=== PATIENT | female | born 2005 | race Caucasian/White ===

== ENCOUNTER 2023-09-15 18:04 | Emergency (ER) | payer OTHER ==
[~2023-09-15] VITALS: Ht 147.3 cm; Wt 94.0 kg
[2023-09-15] MEDS ORDERED: METF500T13 PO (18:12)
[2023-09-15] MEDS: ACETAMINOPHEN 500 MG TAB PO ONE (18:28)
[2023-09-15] MEDS: NS 1,000 ML IV ONE (23:33)
[2023-09-15] MEDS ORDERED: ISOVUE-370 76% 100ML VIAL As Ordered ONE (23:34)
[2023-09-16 00:21] LABS: BASO # 0.1 10^3/uL (0.0-0.2); BASO % 0.3 % (0.0-1.0); EOS # 0.1 10^3/uL (0.0-0.5); EOS % 0.4 % (0.0-3.0); HEMATOCRIT 41.8 % (36.0-47.0); HEMOGLOBIN 13.7 g/dl (12.0-15.5); LYMPH # 4.7 10^3/uL (1.5-5.0); LYMPH % 20.7 % (24.0-44.0); MEAN CORPUSCULAR HEMOGLOBIN 27.5 pg (27.0-33.0); MEAN CORPUSCULAR HGB CONC 32.8 g/dl (32.0-36.5); MEAN CORPUSCULAR VOLUME 83.9 fl (80.0-96.0); MONO # 2.1 10^3/uL (0.0-0.8); MONO % 9.2 % (2.0-8.0); NEUTROPHILS # 15.7 10^3/uL (1.5-8.5); PLATELET COUNT, AUTOMATED 309 10^3/uL (150-450); RED BLOOD COUNT 4.98 10^6/uL (4.00-5.40); WHITE BLOOD COUNT 22.7 10^3/uL (4.0-10.0)
[2023-09-16] MEDS ORDERED: VENTAER INH (00:57)
[2023-09-16 03:10] VITALS: BP 121/69; TEMP 98.3; O2SAT 100
== END 2023-09-16 03:46 | disposition home or self-care (01) ==
LOC: M ED 18:04
DX: B34.8 Other viral infections of unspecified site (principal); R00.0 Tachycardia, unspecified; I45.10 Unspecified right bundle-branch block; E28.2 Polycystic ovarian syndrome; Z79.52 Long term (current) use of systemic steroids; Z79.4 Long term (current) use of insulin
CPT/HCPCS: 71046; 71275; 80047; 81001; 83605; 85025; 87040; 87486; 87581; 87633; 87798; 87880; 93005; 96360; 96361; 99284; Q9967

== ENCOUNTER 2023-11-11 03:36 | Emergency (ER) | payer OTHER ==
[~2023-11-11] VITALS: Ht 147.3 cm; Wt 95.6 kg
[~2023-11-11 03:36] MED LIST: METF500T13 PO; VENTAER INH
[2023-11-11 03:59] VITALS: TEMP 98
[2023-11-11 04:35] LABS: APPEARANCE, URINE HAZY (CLEAR); BACTERIA, URINE AUTO NEGATIVE (NEGATIVE); BILIRUBIN, URINE AUTO NEGATIVE (NEGATIVE); BLOOD, URINE BLOOD 3+ (NEGATIVE); COLOR, URINE YELLOW (YELLOW); GLUCOSE, URINE (UA) AUTO NEGATIVE (NEGATIVE); KETONE, URINE AUTO NEGATIVE (NEGATIVE); LEUKOCYTE ESTERASE, URINE AUTO NEGATIVE (NEGATIVE); NITRITE, URINE AUTO NEGATIVE (NEGATIVE); PROTEIN, URINE AUTO 1+ mg/dL (NEGATIVE); RBC, URINE AUTO TNTC /HPF (0-3); SPECIFIC GRAVITY URINE AUTO 1.013 (1.002-1.035); SQUAMOUS EPITHELIAL CELL UR AU 1 /HPF (0-6); UROBILINOGEN, URINE AUTO 0.2 mg/dL (0.0-2.0); WBC, URINE AUTO 1 /HPF (0-3)
[2023-11-11 04:44] LABS: HEMATOCRIT 41.8 % (36.0-47.0); HEMOGLOBIN 13.8 g/dl (12.0-15.5); MEAN CORPUSCULAR HEMOGLOBIN 27.8 pg (27.0-33.0); MEAN CORPUSCULAR VOLUME 84.1 fl (80.0-96.0); PLATELET COUNT, AUTOMATED 394 10^3/uL (150-450); RED BLOOD COUNT 4.97 10^6/uL (4.00-5.40); WHITE BLOOD COUNT 14.9 10^3/uL (4.0-10.0)
[2023-11-11 05:30] VITALS: BP 121/83; O2SAT 99
== END 2023-11-11 05:59 | disposition home or self-care (01) ==
LOC: M ED 03:36
DX: O03.4 Incomplete spontaneous abortion without complication (principal); Z79.52 Long term (current) use of systemic steroids; Z79.4 Long term (current) use of insulin